=== PATIENT | female | born 1960 | race Two or more races ===

== ENCOUNTER 2022-08-07 07:39 | Outpatient (CLI) | payer OTHER | END 2022-08-07 23:59 | disposition home or self-care (01) | LOC: LAB 07:39 | PROVIDERS: ATTEND Orthopaedic Surgery | DX: Z01.812 Encounter for preprocedural laboratory examination (principal); Z20.822 Contact with and (suspected) exposure to COVID-19 | CPT/HCPCS: U0003; C9803 ==

== ENCOUNTER 2022-08-12 05:26 | Inpatient (IN) | payer OTHER ==
[~2022-08-12] VITALS: Ht 160 cm; Wt 84.0 kg
[2022-08-12] MEDS ORDERED: BUPIVACAINE 0.25% 75 MG/30 ML VIAL ONE (07:31)
[2022-08-12] MEDS ORDERED: POLYMYXIN B SULFATE 0 UNITS ONE (07:31)
[2022-08-12] MEDS ORDERED: VANCOMYCIN 1 GM VIAL ONE ×2 (08:16→09:39)
[2022-08-12] MEDS ORDERED: MIDAZOLAM HCL 2 MG/2ML VIAL ONE ×2 (08:28→10:56)
[2022-08-12] MEDS ORDERED: FENTANYL PF 250MCG/5ML AMPUL ONE (08:28)
[2022-08-12] MEDS ORDERED: FAMOTIDINE/PF INJ 20 MG/2 ML VIAL IV ONE (08:29)
[2022-08-12] MEDS ORDERED: TRANEXAMIC ACID 1,000 MG in IV NS 0.9% 100 ML IV ONE (09:00)
[2022-08-12] MEDS ORDERED: HYDROMORPHONE 1 MG/1 ML DISP.SYRIN ONE (10:57)
[2022-08-12 12:00] VITALS: BP 163/98
[2022-08-12] MEDS ORDERED: LEVO25TA9 PO (12:32)
[2022-08-12] MEDS ORDERED: ROSU10TA29 PO (12:32)
[2022-08-12] MEDS ORDERED: PARO20TA7 PO (12:32)
[2022-08-12] MEDS ORDERED: CLON0.5T4 PO (12:32)
[2022-08-12] MEDS ORDERED: BISACODYL SUPP (10 MG) 10 MG/SUPP.RECT SUPP.RECT RC PRN (13:30)
[2022-08-12] MEDS ORDERED: DOCUSATE SODIUM 250 MG CAPSULE PO PRN (13:30)
[2022-08-12] MEDS ORDERED: SENNOSIDES 8.6 MG TABLET PO PRN ×2 (13:30)
[2022-08-12] MEDS ORDERED: ONDANSETRON HCL/PF 4 MG/2 ML VIAL IVP PRN ×2 (13:30→15:00)
[2022-08-12] MEDS ORDERED: DOCUSATE SODIUM 100 MG CAPSULE PO PRN (13:30)
[2022-08-12] MEDS ORDERED: clonazePAM 0.5 MG TABLET PO PRN (15:00)
[2022-08-12] MEDS ORDERED: Z GUARD REMEDY 4 OZ OINT TP PRN (15:00)
[2022-08-12] MEDS ORDERED: ZOLPIDEM TARTRATE 5 MG TABLET PO PRN (15:00)
[2022-08-12] MEDS ORDERED: HYDROCODONE/APAP 5/325MG TABLET PO PRN ×2 (15:00)
[2022-08-12] MEDS ORDERED: ACETAMINOPHEN 325 MG TABLET PO PRN (15:00)
[2022-08-12] MEDS ORDERED: MAGNESIUM HYDROXIDE 30 ML UDC PO PRN (15:00)
[2022-08-12] MEDS ORDERED: MAG HYDROX/AL HYDROX/SIMETH 30 ML UDC PO PRN (15:00)
[2022-08-12 15:11] LABS: CALCIUM, SERUM 8.6 mg/dL (8.5-10.1); CREATININE 0.7 mg/dL (0.6-1.3); POTASSIUM 3.8 mmol/L (3.5-5.1)
[2022-08-12] MEDS ORDERED: hydrALAZINE HCL 25 MG TABLET PO PRN (15:30)
[2022-08-12 16:00] VITALS: BP 145/95
[2022-08-12] MEDS: ANCEF 1 GM/50 ML D5W IV SCH ×4 (16:08→22:44)
[2022-08-12] MEDS: ACETAMINOPHEN 325 MG TABLET PO PRN ×2 (16:52→22:02)
[2022-08-12] MEDS: ENOXAPARIN SODIUM 40 MG/0.4 ML DISP.SYRIN SQ SCH (16:53)
[2022-08-12] MEDS ORDERED: ENOXAPARIN SODIUM 40 MG/0.4 ML DISP.SYRIN SQ SCH (18:00)
[2022-08-12] MEDS: PAROXETINE HCL 20 MG TABLET PO SCH (18:09)
[2022-08-12] MEDS: ATORVASTATIN 10 MG TABLET PO SCH (18:09)
[2022-08-12 20:37] VITALS: BP 139/75
[2022-08-12] MEDS: CEFEPIME 2 GM in IV D5W 100 ML IV SCH (21:42)
[2022-08-12] MEDS: VANCOMYCIN 1.25 GM in IV D5W 250 ML IV SCH (22:44)
[2022-08-13] MEDS: ACETAMINOPHEN 325 MG TABLET PO PRN ×2 (03:28→09:11)
[2022-08-13 06:46] LABS: BASOPHILS # (AUTO) 0.1 K/uL (0.0-0.2); BASOPHILS % (AUTO) 0.9 % (0.0-2.0); HEMATOCRIT 34 % (33-45); HEMOGLOBIN 11.2 g/dL (11.5-14.8); LYMPHOCYTES % (AUTO) 10.3 % (20.0-44.0); MEAN CORPUSCULAR HGB CONC 33 g/dl (31.0-36.0); MEAN CORPUSCULAR VOLUME 74 fL (82-100); MONOCYTES # (AUTO) 0.8 K/uL (0.1-1.30); MONOCYTES % (AUTO) 8.9 % (2.0-12.0); NEUTROPHILS # (AUTO) 7.5 K/uL (1.8-8.9); NEUTROPHILS % (AUTO) 79.9 % (43.0-81.0); PLATELET COUNT (AUTO) 410 K/uL (150-450); RED BLOOD CELL COUNT(AUTO) 4.62 MIL/uL (4.0-5.2); WHITE BLOOD COUNT (AUTO) 9.4 K/uL (4.3-11.0)
[2022-08-13 07:01] LABS: CALCIUM, SERUM 8.6 mg/dL (8.5-10.1); CREATININE 0.7 mg/dL (0.6-1.3); MAGNESIUM 2.2 mg/dL (1.8-2.4); PHOSPHORUS 2.9 mg/dL (2.5-4.9); POTASSIUM 3.2 mmol/L (3.5-5.1)
[2022-08-13] MEDS: PANTOPRAZOLE 40 MG TABLET.DR PO SCH (07:58)
[2022-08-13] MEDS: LEVOTHYROXINE SODIUM 25 MCG TABLET PO SCH (07:58)
[2022-08-13] MEDS: ANCEF 1 GM/50 ML D5W IV SCH ×4 (07:58→15:29)
[2022-08-13 08:00] VITALS: BP 138/75
[2022-08-13] MEDS: CEFEPIME 2 GM in IV D5W 100 ML IV SCH ×2 (09:51→20:40)
[2022-08-13] MEDS: POTASSIUM CHLORIDE 20 MEQ TAB.PRT.SR PO SCH ×2 (10:31→11:42)
[2022-08-13] MEDS: VANCOMYCIN 1.25 GM in IV D5W 250 ML IV SCH ×2 (10:53→22:07)
[2022-08-13] MEDS: oxyCODONE/APAP (5/325 MG) 1 UDTAB TABLET PO PRN ×3 (11:09→20:18)
[2022-08-13 15:30] VITALS: BP 130/66
[2022-08-13] MEDS: PAROXETINE HCL 20 MG TABLET PO SCH (17:28)
[2022-08-13] MEDS: ATORVASTATIN 10 MG TABLET PO SCH (17:28)
[2022-08-13 20:00] VITALS: BP 136/99
[2022-08-13 20:20] VITALS: BP 136/99
[2022-08-13] MEDS: ENOXAPARIN SODIUM 40 MG/0.4 ML DISP.SYRIN SQ SCH (20:40)
[2022-08-14] MEDS: ANCEF 1 GM/50 ML D5W IV SCH ×4 (00:24→08:21)
[2022-08-14] MEDS: oxyCODONE/APAP (5/325 MG) 1 UDTAB TABLET PO PRN ×5 (00:30→20:43)
[2022-08-14 06:22] LABS: BASOPHILS # (AUTO) 0.1 K/uL (0.0-0.2); BASOPHILS % (AUTO) 0.6 % (0.0-2.0); EOSINOPHILS % (AUTO) 1.7 % (0.0-6.0); HEMATOCRIT 33 % (33-45); HEMOGLOBIN 10.5 g/dL (11.5-14.8); LYMPHOCYTES # (AUTO) 1.3 K/uL (0.8-4.8); LYMPHOCYTES % (AUTO) 14.8 % (20.0-44.0); MEAN CORPUSCULAR HGB CONC 32 g/dl (31.0-36.0); MEAN CORPUSCULAR VOLUME 75 fL (82-100); MONOCYTES % (AUTO) 11.4 % (2.0-12.0); NEUTROPHILS # (AUTO) 6.3 K/uL (1.8-8.9); NEUTROPHILS % (AUTO) 71.5 % (43.0-81.0); PLATELET COUNT (AUTO) 391 K/uL (150-450); RED BLOOD CELL COUNT(AUTO) 4.37 MIL/uL (4.0-5.2); WHITE BLOOD COUNT (AUTO) 8.8 K/uL (4.3-11.0)
[2022-08-14 06:25] LABS: CALCIUM, SERUM 8.7 mg/dL (8.5-10.1); CREATININE 0.8 mg/dL (0.6-1.3); MAGNESIUM 2.4 mg/dL (1.8-2.4); PHOSPHORUS 3.2 mg/dL (2.5-4.9); POTASSIUM 3.5 mmol/L (3.5-5.1)
[2022-08-14] MEDS: LEVOTHYROXINE SODIUM 25 MCG TABLET PO SCH (06:39)
[2022-08-14] MEDS: PANTOPRAZOLE 40 MG TABLET.DR PO SCH (06:39)
[2022-08-14 08:20] VITALS: BP 135/70
[2022-08-14] MEDS: CEFEPIME 2 GM in IV D5W 100 ML IV SCH ×2 (09:33→20:42)
[2022-08-14] MEDS: VANCOMYCIN 1.25 GM in IV D5W 250 ML IV SCH ×2 (11:35→21:45)
[2022-08-14 16:22] VITALS: BP 119/69
[2022-08-14] MEDS: PAROXETINE HCL 20 MG TABLET PO SCH (17:27)
[2022-08-14] MEDS: ATORVASTATIN 10 MG TABLET PO SCH (17:27)
[2022-08-14 20:00] VITALS: BP 131/82
[2022-08-14] MEDS: ENOXAPARIN SODIUM 40 MG/0.4 ML DISP.SYRIN SQ SCH (20:44)
[2022-08-15] MEDS: oxyCODONE/APAP (5/325 MG) 1 UDTAB TABLET PO PRN ×4 (02:14→21:15)
[2022-08-15 05:51] LABS: BASOPHILS # (AUTO) 0.1 K/uL (0.0-0.2); EOSINOPHILS % (AUTO) 4.6 % (0.0-6.0); HEMATOCRIT 34 % (33-45); HEMOGLOBIN 10.7 g/dL (11.5-14.8); LYMPHOCYTES # (AUTO) 1.6 K/uL (0.8-4.8); MEAN CORPUSCULAR HGB CONC 32 g/dl (31.0-36.0); MEAN CORPUSCULAR VOLUME 75 fL (82-100); MONOCYTES # (AUTO) 0.6 K/uL (0.1-1.30); MONOCYTES % (AUTO) 10.9 % (2.0-12.0); NEUTROPHILS # (AUTO) 3.3 K/uL (1.8-8.9); NEUTROPHILS % (AUTO) 56.5 % (43.0-81.0); PLATELET COUNT (AUTO) 415 K/uL (150-450); WHITE BLOOD COUNT (AUTO) 5.8 K/uL (4.3-11.0)
[2022-08-15 06:07] LABS: CALCIUM, SERUM 8.8 mg/dL (8.5-10.1); CREATININE 0.8 mg/dL (0.6-1.3); MAGNESIUM 2.2 mg/dL (1.8-2.4); POTASSIUM 3.5 mmol/L (3.5-5.1)
[2022-08-15] MEDS: LEVOTHYROXINE SODIUM 25 MCG TABLET PO SCH (06:39)
[2022-08-15] MEDS: PANTOPRAZOLE 40 MG TABLET.DR PO SCH (06:39)
[2022-08-15 08:34] VITALS: BP 145/76
[2022-08-15] MEDS: CEFEPIME 2 GM in IV D5W 100 ML IV SCH ×2 (09:19→21:18)
[2022-08-15] MEDS: VANCOMYCIN 1.25 GM in IV D5W 250 ML IV SCH (11:30)
[2022-08-15 16:03] VITALS: BP 152/71
[2022-08-15] MEDS: PAROXETINE HCL 20 MG TABLET PO SCH (17:24)
[2022-08-15] MEDS: ATORVASTATIN 10 MG TABLET PO SCH (17:24)
[2022-08-15] MEDS: clonazePAM 0.5 MG TABLET PO PRN (18:42)
[2022-08-15 20:00] VITALS: BP 128/72
[2022-08-15] MEDS: ENOXAPARIN SODIUM 40 MG/0.4 ML DISP.SYRIN SQ SCH (21:17)
[2022-08-15] MEDS: VANCOMYCIN 1.5 GM in IV D5W 500ml IV SCH (22:54)
[2022-08-16] MEDS: oxyCODONE/APAP (5/325 MG) 1 UDTAB TABLET PO PRN ×3 (01:50→21:32)
[2022-08-16] MEDS: clonazePAM 0.5 MG TABLET PO PRN (04:03)
[2022-08-16 05:53] LABS: BASOPHILS % (AUTO) 0.6 % (0.0-2.0); EOSINOPHILS % (AUTO) 4.2 % (0.0-6.0); HEMATOCRIT 32 % (33-45); HEMOGLOBIN 10.5 g/dL (11.5-14.8); LYMPHOCYTES # (AUTO) 1.1 K/uL (0.8-4.8); LYMPHOCYTES % (AUTO) 20.1 % (20.0-44.0); MEAN CORPUSCULAR HGB CONC 33 g/dl (31.0-36.0); MEAN CORPUSCULAR VOLUME 75 fL (82-100); MONOCYTES # (AUTO) 0.7 K/uL (0.1-1.30); MONOCYTES % (AUTO) 12.1 % (2.0-12.0); NEUTROPHILS # (AUTO) 3.6 K/uL (1.8-8.9); PLATELET COUNT (AUTO) 401 K/uL (150-450); RED BLOOD CELL COUNT(AUTO) 4.31 MIL/uL (4.0-5.2); WHITE BLOOD COUNT (AUTO) 5.7 K/uL (4.3-11.0)
[2022-08-16 06:20] LABS: CREATININE 0.7 mg/dL (0.6-1.3); MAGNESIUM 2.2 mg/dL (1.8-2.4); PHOSPHORUS 4.2 mg/dL (2.5-4.9); POTASSIUM 3.3 mmol/L (3.5-5.1)
[2022-08-16] MEDS: PANTOPRAZOLE 40 MG TABLET.DR PO SCH (06:35)
[2022-08-16] MEDS: LEVOTHYROXINE SODIUM 25 MCG TABLET PO SCH (06:35)
[2022-08-16 08:00] VITALS: BP 145/88
[2022-08-16] MEDS: CEFEPIME 2 GM in IV D5W 100 ML IV SCH ×2 (08:48→20:57)
[2022-08-16] MEDS: VANCOMYCIN 1.5 GM in IV D5W 500ml IV SCH ×2 (09:53→22:08)
[2022-08-16] MEDS ORDERED: POTASSIUM CHLORIDE 20 MEQ TAB.PRT.SR PO SCH (11:00)
[2022-08-16 16:00] VITALS: BP 138/83
[2022-08-16] MEDS ORDERED: MORPHINE SULFATE INJ 2 MG/ML DISP.SYRIN ONE (16:48)
[2022-08-16] MEDS: ATORVASTATIN 10 MG TABLET PO SCH (18:21)
[2022-08-16] MEDS: PAROXETINE HCL 20 MG TABLET PO SCH (18:21)
[2022-08-16 20:00] VITALS: BP 141/77
[2022-08-16] MEDS: ENOXAPARIN SODIUM 40 MG/0.4 ML DISP.SYRIN SQ SCH (20:58)
[2022-08-17] MEDS: oxyCODONE/APAP (5/325 MG) 1 UDTAB TABLET PO PRN ×3 (02:55→17:32)
[2022-08-17 06:12] LABS: BASOPHILS % (AUTO) 0.8 % (0.0-2.0); EOSINOPHILS % (AUTO) 4.8 % (0.0-6.0); HEMATOCRIT 33 % (33-45); HEMOGLOBIN 10.4 g/dL (11.5-14.8); LYMPHOCYTES # (AUTO) 1.4 K/uL (0.8-4.8); LYMPHOCYTES % (AUTO) 25.3 % (20.0-44.0); MEAN CORPUSCULAR HGB CONC 32 g/dl (31.0-36.0); MEAN CORPUSCULAR VOLUME 74 fL (82-100); MONOCYTES # (AUTO) 0.8 K/uL (0.1-1.30); MONOCYTES % (AUTO) 15.4 % (2.0-12.0); NEUTROPHILS % (AUTO) 53.7 % (43.0-81.0); PLATELET COUNT (AUTO) 403 K/uL (150-450); RED BLOOD CELL COUNT(AUTO) 4.43 MIL/uL (4.0-5.2); WHITE BLOOD COUNT (AUTO) 5.5 K/uL (4.3-11.0)
[2022-08-17 06:32] LABS: CALCIUM, SERUM 9.3 mg/dL (8.5-10.1); CREATININE 0.7 mg/dL (0.6-1.3); MAGNESIUM 2.4 mg/dL (1.8-2.4); PHOSPHORUS 4.2 mg/dL (2.5-4.9)
[2022-08-17] MEDS: LEVOTHYROXINE SODIUM 25 MCG TABLET PO SCH (07:51)
[2022-08-17] MEDS: PANTOPRAZOLE 40 MG TABLET.DR PO SCH (07:51)
[2022-08-17 08:00] VITALS: BP 121/59
[2022-08-17] MEDS: CEFEPIME 2 GM in IV D5W 100 ML IV SCH ×2 (08:24→20:22)
[2022-08-17] MEDS: VANCOMYCIN 1.5 GM in IV D5W 500ml IV SCH (10:54)
[2022-08-17 16:00] VITALS: BP 153/73
[2022-08-17] MEDS: PAROXETINE HCL 20 MG TABLET PO SCH (17:26)
[2022-08-17] MEDS: ATORVASTATIN 10 MG TABLET PO SCH (17:27)
[2022-08-17 20:19] VITALS: BP 136/71
[2022-08-17] MEDS: ENOXAPARIN SODIUM 40 MG/0.4 ML DISP.SYRIN SQ SCH (20:25)
[2022-08-17 20:26] VITALS: BP 136/71
[2022-08-17] MEDS: VANCOMYCIN 1.25 GM in IV D5W 250 ML IV SCH (21:57)
[2022-08-18] MEDS: oxyCODONE/APAP (5/325 MG) 1 UDTAB TABLET PO PRN ×3 (00:54→21:28)
[2022-08-18] MEDS: LEVOTHYROXINE SODIUM 25 MCG TABLET PO SCH (06:44)
[2022-08-18] MEDS: PANTOPRAZOLE 40 MG TABLET.DR PO SCH (06:44)
[2022-08-18 07:20] LABS: CALCIUM, SERUM 9.2 mg/dL (8.5-10.1); CREATININE 0.7 mg/dL (0.6-1.3); POTASSIUM 3.6 mmol/L (3.5-5.1)
[2022-08-18 08:00] VITALS: BP 148/70
[2022-08-18] MEDS: VANCOMYCIN 1.25 GM in IV D5W 250 ML IV SCH ×2 (10:04→21:10)
[2022-08-18] MEDS: clonazePAM 0.5 MG TABLET PO PRN (11:22)
[2022-08-18] MEDS: CEFEPIME 2 GM in IV D5W 100 ML IV SCH ×2 (12:11→21:10)
[2022-08-18] MEDS: PAROXETINE HCL 20 MG TABLET PO SCH (17:31)
[2022-08-18] MEDS: ATORVASTATIN 10 MG TABLET PO SCH (17:31)
[2022-08-18 18:47] VITALS: BP 126/73
[2022-08-18 20:00] VITALS: BP 122/67
[2022-08-18] MEDS: ENOXAPARIN SODIUM 40 MG/0.4 ML DISP.SYRIN SQ SCH (21:14)
[2022-08-19] MEDS: oxyCODONE/APAP (5/325 MG) 1 UDTAB TABLET PO PRN ×2 (03:57→10:45)
[2022-08-19] MEDS: PANTOPRAZOLE 40 MG TABLET.DR PO SCH (08:21)
[2022-08-19] MEDS: LEVOTHYROXINE SODIUM 25 MCG TABLET PO SCH (08:21)
[2022-08-19 09:32] VITALS: BP 132/73
[2022-08-19] MEDS: CEFEPIME 2 GM in IV D5W 100 ML IV SCH (09:46)
[2022-08-19] MEDS ORDERED: BISA10SU61 RC (09:55)
[2022-08-19] MEDS ORDERED: VANC1.2526 IV (09:55)
[2022-08-19] MEDS ORDERED: DOCU100C36 PO (09:55)
[2022-08-19] MEDS ORDERED: MAGN400O6 PO (09:55)
[2022-08-19] MEDS ORDERED: SENN-175 PO (09:55)
[2022-08-19] MEDS ORDERED: OXYC1TAB8 PO (09:55)
[2022-08-19] MEDS ORDERED: CEFE2FRO IV (09:55)
[2022-08-19] MEDS ORDERED: PANT40TA49 PO (09:55)
[2022-08-19] MEDS ORDERED: ACET325T53 PO (09:55)
[2022-08-19] MEDS ORDERED: CLON0.5T4 PO (09:55)
[2022-08-19] MEDS ORDERED: ENOX40DI SQ (09:55)
[2022-08-19] MEDS ORDERED: VANC1VIA34 XX (09:55)
[2022-08-19] MEDS: VANCOMYCIN 1.25 GM in IV D5W 250 ML IV SCH (11:11)
[2022-08-19] MEDS: clonazePAM 0.5 MG TABLET PO PRN (17:28)
[2022-08-19] MEDS: PAROXETINE HCL 20 MG TABLET PO SCH (17:53)
[2022-08-19] MEDS: ATORVASTATIN 10 MG TABLET PO SCH (17:53)
[2022-08-19 18:26] VITALS: BP 154/67
== END 2022-08-19 18:35 | DRG 325 ==
LOC: DS 05:26 → MED 12:27
PROVIDERS: ADMIT Student in an Organized Health Care Education/Training Program; ATTEND Nurse Practitioner Acute Care
PROC: 0SPC09Z Removal of Liner from Right Knee Joint, Open Approach (ICD-10-PCS; principal; 2022-08-12)
PROC: 0SUV09Z Supplement Right Knee Joint, Tibial Surface with Liner, Open Approach (ICD-10-PCS; 2022-08-12)
PROC: 02HV33Z Insertion of Infusion Device into Superior Vena Cava, Percutaneous Approach (ICD-10-PCS; 2022-08-14)
PROC: B548ZZA Ultrasonography of Superior Vena Cava, Guidance (ICD-10-PCS; 2022-08-14)
DX: T84.53XA Infection and inflammatory reaction due to internal right knee prosthesis, initial encounter (principal); L02.415 Cutaneous abscess of right lower limb; E78.5 Hyperlipidemia, unspecified; Z20.822 Contact with and (suspected) exposure to COVID-19; Y83.1 Surgical operation with implant of artificial internal device as the cause of abnormal reaction of the patient, or of later complication, without mention of misadventure at the time of the procedure; Y92.009 Unspecified place in unspecified non-institutional (private) residence as the place of occurrence of the external cause; Z68.32 Body mass index [BMI] 32.0-32.9, adult; E66.9 Obesity, unspecified; E87.6 Hypokalemia; L03.115 Cellulitis of right lower limb; Z85.42 Personal history of malignant neoplasm of other parts of uterus; Z90.710 Acquired absence of both cervix and uterus; Z79.899 Other long term (current) drug therapy; Z79.890 Hormone replacement therapy
CPT/HCPCS: 36415; 71045-TC; 80048-TC; 80202-TC; 83735-TC; 84100-TC; 85025-TC; 87081-TC; 97116-TC; 97530-TC; A4217; A6253; A6403; A6407; C1713; C1776; G0378; J0690; J0692; J1170; J1650; J1885; J2250; J2270; J2405; J2704; J2765; J3010; J3370; J3490; J7030; J7040; J7060